=== PATIENT | female | born 1975 | race Caucasian/White ===

== ENCOUNTER 2017-12-28 16:19 | Inpatient (IN) | payer OTHER ==
[~2017-12-28] VITALS: Ht 166.4 cm; Wt 53.5 kg
[2017-12-28] MEDS ORDERED: MIRALAX 17 GM POWD.PACK PO PRN (17:15)
[2017-12-28] MEDS ORDERED: NICOTINE 14 MG/24HR PATCH TD PRN (17:15)
[2017-12-28] MEDS ORDERED: LOPERAMIDE HCL 2 MG CAPSULE PO PRN ×2 (17:15)
[2017-12-28] MEDS ORDERED: MAG HYDROX/AL HYDROX/SIMETH 30 ML LIQUID UDC PO PRN (17:15)
[2017-12-28] MEDS ORDERED: ONDANSETRON 4 MG/2 ML VIAL IM PRN (17:15)
[2017-12-28] MEDS ORDERED: ACETAMINOPHEN 325 MG TABLET PO PRN (17:15)
[2017-12-28] MEDS ORDERED: DICYCLOMINE HCL 20 MG TABLET PO PRN (17:15)
[2017-12-28] MEDS ORDERED: LORAZEPAM 1 MG TABLET PO PRN (17:15)
[2017-12-28] MEDS ORDERED: CLONIDINE HCL 0.1 MG TABLET PO PRN (17:15)
[2017-12-28] MEDS ORDERED: NICOTINE POLACRILEX 4 MG GUM-PK OF TEN BC PRN (17:15)
[2017-12-28] MEDS ORDERED: diphenhydrAMINE 50 MG CAPSULE PO PRN (17:15)
[2017-12-28] MEDS ORDERED: MAGNESIUM HYDROXIDE 30 ML LIQUID UDC PO PRN (17:15)
[2017-12-28] MEDS ORDERED: LORAZEPAM 2 MG/1 ML VIAL IM PRN (17:15)
[2017-12-28 17:46] VITALS: BP 117/65
--- NOTE | 2017-12-28 17:51 | NUR ---
PRE ADMISSION 42 year old female presenting at intake office, patient noted anxious and fidgety. patient bp: 117/65 hr: 74 t: 98.0 r: 16 02sat: 99% room air. patient reports allergies to penicillins and shrimp. patient reports is here to detox off of: oxycodone, ketamine and Klonopin. Patient reports she lives in [place] with her . reports past medical history of: anxiety and depression. primary care physician, Dr. Tapia in [place]. Patient was seen and examined by Dr. Beck at intake office. Patient was educated and provided with teaching regarding admission process and unit protocols with good verbal understanding.
[2017-12-28 18:18] LABS: BASOPHILS % (AUTO) 0.6 % (0.0-2.0); EOSINOPHILS # (AUTO) 0.6 K/uL (0.0-0.7); EOSINOPHILS % (AUTO) 8.2 % (0.0-7.0); HEMATOCRIT 42.5 % (31.2-41.9); HEMOGLOBIN 14.9 g/dL (10.9-14.3); LYMPHOCYTES # (AUTO) 1.7 K/uL (20.0-40.0); MEAN CORPUSCULAR HEMOGLOBIN 31.3 uug (24.7-32.8); MEAN CORPUSCULAR HGB CONC 35 g/dL (32.3-35.6); MEAN CORPUSCULAR VOLUME 89.5 fL (75.5-95.3); MONOCYTES # (AUTO) 0.6 K/uL (2.0-10.0); MONOCYTES % (AUTO) 8.9 % (0.0-11.0); NEUTROPHILS # (AUTO) 4.1 K/uL (1.8-8.9); NEUTROPHILS % (AUTO) 58.3 % (38.5-71.5); PLATELET COUNT (AUTO) 278 K/uL (179-408); RED BLOOD CELL COUNT(AUTO) 4.75 MIL/uL (3.63-4.92)
--- NOTE | 2017-12-28 18:20 | NUR ---
[facility]ION [facility], body search completed by female LABORER CHEESEMAKING, no contraband was found, patients body assessment completed, patient skin is intact, no breakdown, bruising or discoloration were noted. Patient was oriented to unit and to room, education regarding call light use was provided. Patient noted fidgety and anxious, has a flat affect. Patient provided with calming reassurance. Patient reports allergies to penicillins and to shrimp. Patient reports that in 2006 she was prescribed opiates due to severe menstrual cramps and PMS. Patient then reports she began taking medication not as prescribed, patient reports unable to stop taking the medication but is self motivated towards her sobriety to stop using drugs. Patient reports substance use history of: 1. opiates- oxycodone 150mg a day by mouth or intranasally, patient reports she first began using in the year 2006, but for the past two years has been taking 150mg a day, last used 12/28/2017 at 1530 consumed 15mg. 2. ketamine- began using at the age of 21, for the past 5 years has been using on a weekly basis 1 gram, via intranasally. 3. Klonopin-began using 3 years ago, for the past 3 years has been using 1mg four time a month, last used 12/21/2017 consumed 1mg. Patient reports this is her first time in detox/rehab. Reports a past medical history of: anxiety and depression diagnosed 5 years ago, when her mother . Patient reports she has had surgery on arm due to a tendon in 2009, reports surgery last year to ear drum pop. 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 Patient reports her primary care physician is Dr. Tapia in [place]. Patient reports she smokes 1.5 packs of cigarettes on a daily basis, smoking cessation education provided. Patient currently intoxicated. Denies any history of seizures. Patients safety precautions are in place. Patient was endorsed to shift nurse manager nurse, all pertinent information was discussed.
[2017-12-28 18:21] LABS: *URINE HCG, QUAL NEGATIVE (NEGATIVE)
[2017-12-28 18:22] LABS: ALANINE AMINOTRANSFERASE 24 U/L (14-59); ALKALINE PHOSPHATASE 38 U/L (50-136); ASPARTATE AMINOTRANSFERASE 14 U/L (15-37); BILIRUBIN,TOTAL 0.3 mg/dL (0.2-1.0); CARBON DIOXIDE 31 mmol/L (21-32); CHLORIDE 101 mmol/L (98-107); CREATININE 0.8 mg/dL (0.6-1.3); GLUCOSE 124 mg/dL (74-106); MAGNESIUM 1.8 mg/dL (1.8-2.4); POTASSIUM 3.6 mmol/L (3.5-5.1); UREA NITROGEN, BLOOD 8 mg/dL (7-18)
[2017-12-28 18:33] LABS: THYROID STIMULATING HORMONE 0.157 mIU/mL (0.358-3.740)
[2017-12-28 18:34] LABS: ETHANOL < 3 MG/DL (0-0)
[2017-12-28] MEDS: LORAZEPAM 1 MG TABLET PO PRN (18:42)
--- NOTE | 2017-12-28 18:42 | NUR ---
PRN ATIVAN Patient noted with "panic attack", rapid breathing, crying, elevated heart rate, agitation, increase nausea. patient provided with calming reassurance and breathing techniques with no relief, patient reports "i suffer from panic attacks" patient with ciwa score of: 15. As per MD orders patient was administered 2mg Ativan PO for ciwa score of above 12. Staff Nurse at patients bedside with continuous non pharmacological interventions. hr: 122. Will continue to monitor closely. safety measures in place.
[2017-12-28 18:46] LABS: *AMPHETAMINE, URINE NEGATIVE (NEGATIVE); *BARBITURATE, URINE NEGATIVE (NEGATIVE); *CANNABINOID, URINE NEGATIVE (NEGATIVE); *COCCAINE, URINE POSITIVE (NEGATIVE); *OPIATE, URINE NEGATIVE (NEGATIVE); *PHENCYCLIDINE SCREEN,URINE NEGATIVE (NEGATIVE)
--- NOTE | 2017-12-28 19:17 | NUR ---
Start of shift note Received report from day shift nurse. Pt is a 42 yo female, A+Ox4, presenting to [facility] for Benzo/Opiate withdrawal. Pt noted to be restless, anxious, and agitated. Pt has HX of Anxiety and depression. Pt is on 5 day Subutex taper, tolerated well. Respirations even and unlabored. Will continue to monitor.
[2017-12-28 20:17] VITALS: BP 115/78
[2017-12-28] MEDS ORDERED: BUPRENORPHINE HCL 2 MG TAB.SUBL SL PRN (21:00)
[2017-12-28] MEDS ORDERED: LORAZEPAM 1 MG TABLET PO SCH (21:00)
[2017-12-28] MEDS: GABAPENTIN 300 MG CAPSULE PO SCH (21:00)
[2017-12-28] MEDS ORDERED: [UNRECOGNIZED DRUG - CODE] VG (21:18)
[2017-12-28] MEDS ORDERED: CA C PO (21:18)
[2017-12-28] MEDS ORDERED: ALBU18HF2 INH (21:18)
[2017-12-28] MEDS ORDERED: SIME125T3 PO (21:18)
[2017-12-28] MEDS ORDERED: MICO100S5 VG (21:18)
[2017-12-28] MEDS ORDERED: MICO15CR4 TP (21:18)
[2017-12-28] MEDS ORDERED: MULTIVITAMIN GUMMY (21:18)
[2017-12-29 00:31] VITALS: BP 112/74
[2017-12-29 04:26] VITALS: BP 119/77
--- NOTE | 2017-12-29 06:57 | NUR ---
End of shift note Pt was continuously noted to be anxious, restless, and agitated. Pt remained in room for majority of shift except to get food from kitchen and to go smoke on smoking patio. Pt was not given any PRN medications during shift. Pt slept for a total of 9 HRS. Last COWS: 7 and Last CIWA: 7 @0400. Respirations even and unlabored. Will endorse to day shift nurse.
--- NOTE | 2017-12-29 07:42 | NUR ---
BEGINNING OF SHIFT Patient endorsement report received from guard captain nurse, all pertinent information discussed. Patient is a 42 year old female with admitting Dx: Opiate withdrawal. Patient is Currently under close observation, patient scheduled to begin a subutex taper this morning, will monitor closely. patient with last cow score of: 7, and ciwa score of 7. slept for 9 hours. Fall and seizure precautions observed at all times. Patient received in bed with eyes closed, respirations are even and unlabored. will educated regarding plan of care for the day, and medication regimen. fall and seizure precautions observed and in place. will continue to monitor closely. safety measures in place.
[2017-12-29 08:55] VITALS: BP 111/67
[2017-12-29] MEDS ORDERED: TUBERCULIN,PURIF.PROT.DERIV. 5 TU/0.1 ML TEST ID ONE (09:00)
[2017-12-29] MEDS: GABAPENTIN 300 MG CAPSULE PO SCH ×2 (09:00→20:41)
[2017-12-29] MEDS: BUPRENORPHINE HCL 2 MG TAB.SUBL SL SCH ×3 (09:00→20:41)
[2017-12-29 13:22] VITALS: BP 108/61
--- NOTE | 2017-12-29 13:27 | NUR ---
PRN ATIVAN/SUBUTEX Patient presented with restlessness, inability to stay still, flushed face, clammy skin, enlarged pupils, bone and joint aches, nasal congestion, moist eyes, abdominal cramps, tremors, irritability, anxiety, and gooseflesh with cow score of: 16 and ciwa score of: 15, Administered Subutex 4mg SL as ordered and Ativan 2 mg PO as ordered for s/sx of withdrawal. Vital signs WNL. will continue to monitor. Addendum: 12/29/17 at [address] ELISE LVN [address]. Beck was made aware of patients CIWA score of: 15.
[2017-12-29] MEDS: LORAZEPAM 1 MG TABLET PO PRN ×2 (13:29→17:40)
--- NOTE | 2017-12-29 13:57 | NUR ---
SUBUTEX REASSESSMENT Medication effective, decrease in restlessness, and reports no c/o stomach cramps. cow score from: 16 to 13, will continue to monitor. safety measures in place.
--- NOTE | 2017-12-29 14:27 | NUR ---
ATIVAN REASSESSMENT Medication effective, patient with decrease restlessness and decrease tremors, ciwa score from 15 to 13. will continue to monitor.
[2017-12-29] MEDS: GUAIFENESIN LA 600 MG TABLET.SA PO PRN (15:45)
--- NOTE | 2017-12-29 15:45 | NUR ---
PRN MUCINEX Patient noted with cough, as per MD orders patient to receive mucinex for cough, administered medication as ordered, encouraged patient to increase PO fluid intake as tolerated. will monitor.
--- NOTE | 2017-12-29 15:49 | NUR ---
PRN CLONIDINE Patient diaphoretic c/o feeling hot and cold with chills. patient also with increase anxiety/agitation. Administered clonidine as ordered, will monitor effectiveness of medication. bp: 108/61 hr: 64.
[2017-12-29] MEDS: METHOCARBAMOL 750 MG TABLET PO PRN (16:40)
--- NOTE | 2017-12-29 16:40 | NUR ---
PRN ROBAXIN Patient c/o muscle aches 02/17, administered Robaxin as ordered, will monitor effectiveness of medication.
--- NOTE | 2017-12-29 16:45 | NUR ---
MUCINEX REASSESSMENT Patient repots medication effective, decrease in cough. will continue to monitor.
--- NOTE | 2017-12-29 16:49 | NUR ---
CLONIDINE REASSESSMENT Patient reports feeling less diaphoretic, less c/o chills, patient reports still feeling very anxious and agitated. provided patient with calming reassurance and non pharmacological interventions will continue to monitor.
[2017-12-29 17:38] VITALS: BP 109/94
--- NOTE | 2017-12-29 17:40 | NUR ---
PRN ATIVAN Patient noted with elevated heart rate, agitation, tremors, sweats, inability to stay still, and increase anxiety, patient verbalized feeling very anxious. patient provided with calming reassurance and breathing techniques with no relief, patient with ciwa score of: 14. As per MD orders patient was administered 2mg Ativan PO for ciwa score of above 12. Will continue to monitor closely. safety measures in place.
--- NOTE | 2017-12-29 17:40 | NUR ---
ROBAXIN REASSESSMENT Patient reports medication effective, current pain level 2/10, will continue to monitor.
--- NOTE | 2017-12-29 18:40 | NUR ---
ATIVAN REASSESSMENT Patient presented with less anxiety and agitation. current ciwa score of: 12. will continue to monitor.
--- NOTE | 2017-12-29 18:42 | NUR ---
END OF SHIFT Patient alert and oriented x4, monitored closely during shift. Patient has a worried, and anxious facial expression. Patient at times with increase anxiety, restlessness, and agitation, provided with calming reassurance as needed along with non pharmacological interventions as needed. Patient presented with: elevated heart rate, restlessness, flushed face, diaphoresis, enlarged pupils, nasal congestion, moist eye, abdominal cramps, tremors, anxiety, gooseflesh. Initial cow score of: 6, and ciwa score of: 6, last cow score of: 12 and ciwa score of: 14. Patient was received first dose of detox medication Subutex as ordered at 1327. Patient also received PRN: Subutex, Ativan x2, Mucinex, clonidine, Robaxin as ordered, medications were effective. Patient noted with productive cough, remains afebrile, encouraged patient adequate PO fluid intake as tolerated. During shift PPD was administered to left F/A, well tolerated. Patient encouraged participation in therapy sessions, patient denies any SI/HI, Patient was encouraged to verbalize feelings, encouraged to develop coping skills and utilization of non pharmacological interventions. Patients safety measures are in place. call light kept within reach, will continue to monitor. Endorsed to shift coordinator nurse, all pertinent information discussed.
--- NOTE | 2017-12-29 19:15 | NUR ---
Start of Shift Note: Received patient from day shift nurse. Patient is a 42 y.o female admitted yesterday 12/28/17 for medically supervised withdrawal from Opiates. Patient is alert & oriented x4. Patient appears flushed, has a blunt affect & anxious/irritable mood. Patient presents with sweating, chills, stuffy nose, reports restless legs, 5/10 generalized body aches, mild headache & nausea. Patient started on a 5-day Subutex taper and is tolerating well. Last COWS 12 CIWA 12. Pt received PRN Ativan 2mg x2, Mucinex, Clonidine & Robaxin during day shift and was effective per report. Patient remains stable. Educated patient of current plan of care. Encourage pt to increased fluid intake. Will continue to monitor patient.
[2017-12-29 20:00] VITALS: BP 95/65
[2017-12-29] MEDS: IBUPROFEN 600 MG TABLET PO PRN (20:41)
[2017-12-29] MEDS: ONDANSETRON ODT 4 MG TAB.RAPDIS SL PRN (20:41)
[2017-12-29] MEDS: HYDROXYZINE PAMOATE 25 MG CAPSULE PO PRN (20:41)
--- NOTE | 2017-12-29 20:41 | NUR ---
PRN Zofran/Motrin/Vistaril Patient is anxious and agitated, reports 5/10 generalized body aches & mild headache and nausea noted with no episode of vomiting. Non-pharmacological intervention provided but ineffective. PRN Zofran SL, Motrin & Vistaril administered as ordered. Will monitor for effectiveness of medication.
[2017-12-29] MEDS: ALBUTEROL INHALER IH PRN (20:55)
--- NOTE | 2017-12-29 21:41 | NUR ---
PRN Reassessment Patient verbalized improved nausea, decreased in pain from 7/10 to 3/10 and decreased in anxiety after medication administration. Pt noted in bed calm & comfortable. No facial grimacing noted. Safety measures in place. Will continue to monitor patient.
--- NOTE | 2017-12-30 07:06 | NUR ---
End of Shift Note: Patient is a 42 y.o female admitted 12/28/17 for medically supervised withdrawal from Opiates. Patient is alert & oriented x4. Patient has been isolative and stayed in her room the whole night. Educated patient to increase activity and to socialize. Patient continues on her Subutex taper tolerating well. Patient presented with sweating, chills, stuffy nose, restlessness, generalized body aches, mild headache & nausea. Last COWS is 12 CIWA 12. Patient received PRN Zofran, Motrin & Vistaril during my shift and were effective. Pt stable at this time. Pt remains compliant with treatment and medications. Will continue to closely monitor s/s of withdrawal. Encourage pt to increase fluid intake. Fluid intake: 500 ml, Voided 1x with no bowel movement. Pt slept for a total of 8 hours. All needs attended & met. Safety measures in place. Will endorse pt to day shift nurse.
--- NOTE | 2017-12-30 07:46 | NUR ---
START OF SHIFT Received report from night nurse, 42 year old female admitted for Opioids withdrawal. Patient cont with 5 days Subutex tolerating well. Per endorsement patient received PRN Vistaril, Motrin, Zofran effective per night nurse and slept for 8 hours, Last COWS was-12 and CIWA 12. Received patient alert awake anxious agitated, restless, bilateral hand tremors noted. Patient is due for schedule medications. Educated patient with current plan of care of medications regimen and importance of attending groups and activities with good verbal understanding. Safety measures in place. Will cont with plan of care.
[2017-12-30 08:00] VITALS: BP 107/62
[2017-12-30] MEDS: GABAPENTIN 300 MG CAPSULE PO SCH ×2 (08:12→20:40)
--- NOTE | 2017-12-30 08:20 | NUR ---
PRN ATIVAN CIWA score noted 9, patient c/o of anxiety, agitation, restless,sweats,bilateral hand tremors noted. PRN Ativan 1mg PO given as ordered. Will cont to monitor and reassess.
[2017-12-30] MEDS ORDERED: BUPRENORPHINE HCL 2 MG TAB.SUBL SL SCH (09:00)
--- NOTE | 2017-12-30 09:00 | NUR ---
ATIVAN REASSESSMENT CIWA score noted 5, patient reported Ativan was effective in controlling s/s of withdrawal.
[2017-12-30 11:06] LABS: HEPATITIS B SURFACE AG Negative (Negative)
[2017-12-30] MEDS: GUAIFENESIN LA 600 MG TABLET.SA PO PRN (11:25)
[2017-12-30] MEDS: HYDROXYZINE PAMOATE 25 MG CAPSULE PO PRN (11:29)
--- NOTE | 2017-12-30 11:29 | NUR ---
PRN VISTARIL/MUCINEX Patient c/o of anxiety, agitation, and cough. PRN Vistaril 25mg PO, Mucinex 600mg PO given as ordered. Will cont to monitor and reassess.
[2017-12-30] MEDS ORDERED: ALBUTEROL SULFATE 2.5 MG/ 0.5 ML NEBU NEB PRN (11:45)
[2017-12-30] MEDS ORDERED: LORAZEPAM 1 MG TABLET PO ONE (11:45)
[2017-12-30] MEDS ORDERED: AZITHROMYCIN 250 MG TABLET PO ONE (11:45)
[2017-12-30 12:00] VITALS: BP 109/60
[2017-12-30] MEDS ORDERED: BENZONATATE 100 MG CAPSULE PO PRN (12:00)
--- NOTE | 2017-12-30 12:29 | NUR ---
VISTARIL, MUCINEX REASSESSMENT Per patient medications were effective anxiety, agitation and cough subsided.
[2017-12-30] MEDS: BUPRENORPHINE HCL 2 MG TAB.SUBL SL SCH ×2 (14:52→20:41)
[2017-12-30] MEDS: METHOCARBAMOL 750 MG TABLET PO PRN (15:01)
--- NOTE | 2017-12-30 15:01 | NUR ---
PRN ROBAXIN,NICOTINE GUM Patient c/o of myalgia 5/10, and nicotine craving. PRN Robaxin 750mg PO, Nicotine 4mg given as ordered. Will cont to monitor and reassess.
[2017-12-30 16:00] VITALS: BP 115/55
--- NOTE | 2017-12-30 16:01 | NUR ---
NICOTINE GUM, ROBAXIN REASSESSMENT Per patient nicotine gum was effective in controlling craving and muscle spasms lower to 2/10.
--- NOTE | 2017-12-30 19:03 | NUR ---
END OF SHIFT NOTE Gave report to night nurse,42 year old female remains A/O x4. Patient cont with Subutex taper tolerating well. Patient presented with anxiety, agitation, tremors, light headed,nausea, difficulty sitting still, yawning, body aches, cough, nicotine craving. Patient was given scheduled medications and was given PRN Mucinex 600mg , Vistaril 25mg Po , Ativan 2mg PO x1 and Azithromycin 500mg PO x1,Robaxin 750mg PO, Nicotine gum 4mg. Pt encouraged to attend groups and activities. Pt seen socializing with peers. Most recent COWS is 4. All pertinent information provided to night nurse. Pt is stable at this time, night nurse will continue to monitor.
--- NOTE | 2017-12-30 19:24 | NUR ---
START OF SHIFT 307 Vanessa Patient is a 42-year-old female admitted on 12/28/17 for opiate and benzo withdrawal. Patient is currently on a 5-day Subutex taper, today is day 2, tolerating well, with PRN Ativan on hand. Patients last COWS was 10, last CIWA 6 per day shift nurse. Patient received the following PRNs today: Ativan 1mg, Mucinex, Vistaril, Robaxin, and Nicotine gum; all noted to be effective by day shift. Upon assessment, patient is crying and very anxious. Patient is distressed about not being able to speak with her and tearfully states, "I just want to go to sleep so I don't have to think about anything" demonstrating inability to cope with her anxiety. Patient complains of nausea stating, "I almost threw up downstairs when we were outside," however patient refuses any medication to relieve nausea stating, "I'll just keep swallowing." Patient also reports difficulty sleeping and is requesting sleep aid. Patient is on fall and seizure precautions with no history of seizure. Safety measures in place, side rails up x2, bed locked in low position, call light within reach. Will continue to monitor.
[2017-12-30 20:00] VITALS: BP 113/69
[2017-12-30] MEDS: TRAZODONE 100 MG TABLET PO PRN (20:41)
[2017-12-30] MEDS: LORAZEPAM 1 MG TABLET PO PRN (20:41)
--- NOTE | 2017-12-30 20:41 | NUR ---
PRN ATIVAN & TRAZODONE Patient is tearful, anxious, agitated and restless. Patient reports difficulty sleeping and requests sleep medication. PRN Ativan 2mg given for CIWA greater than 12, currently 13. PRN Zofran given PO. Safety measures in place, call light within reach. Will monitor for effectiveness.
--- NOTE | 2017-12-30 21:41 | NUR ---
PRN ATIVAN & TRAZODONE REASSESSMENT Patient has a current CIWA of 8. Patient is observed in bed stating, "I'm starting to get sleepy." PRN Ativan and Trazodone effective. Safety measures in place, side rails up x2, bed locked in low position, call light within reach. Will continue to monitor.
[2017-12-31] VITALS: BP 108/56
--- NOTE | 2017-12-31 | NUR ---
COWS DEFERRED COWS deferred due to patient sleeping; to be assessed and scored while patient is awake. Respirations even and unlabored. Safety measures in place, call light within reach. Will continue to monitor.
[2017-12-31 04:00] VITALS: BP 104/62
--- NOTE | 2017-12-31 04:00 | NUR ---
COWS DEFERRED COWS deferred again at this time due to patient sleeping; to be assessed and scored while patient is awake. Respirations are even and unlabored. Safety measures in place, call light within reach. Will continue to monitor.
--- NOTE | 2017-12-31 07:15 | NUR ---
END OF SHIFT Patient is a 42-year-old female admitted on 12/28/17 for opiate and benzo withdrawal. Patient is currently on a 5-day Subutex taper, today will be day 3, tolerating well, with PRN Ativan on hand. Patients last COWS was 14, last CIWA 8. Patient received PRN Ativan 2mg for CIWA of 13 and PRN Trazodone for sleep, both were effective. Patient slept for 10 hours, total intake of 1,855mL, void x1, stool x0. Patient is on fall and seizure precautions with no history of seizure. Safety measures in place, side rails up x2, bed locked in low position, call light within reach. Will endorse to day shift.
[2017-12-31 08:00] VITALS: BP 106/60
--- NOTE | 2017-12-31 08:05 | NUR ---
START OF SHIFT: RECEIVED PT A/O X 4. SHE PRESENTS WITH IRRITABLE MOOD AND CONGRUENT AFFECT. SHE IS TEARFUL AND STATES THAT SHE FEELS "TERRIBLE". SHE C/O BODY ANXIETY, BODY ACHES,SWEATS,CHILLS AND RESTLESSNESS. COWS 11. SUBUTEX TAPER IN PROGRESS TO MANAGE S/S OF W/D. PRN VISTARIL GIVEN TO MANAGE ANXIETY.ENCOURAGED INCREASED FLUIDS FOR HYDRATION. ENCOURAGED GROUP ATTENDANCE TO IMPROVE COPING SKILLS AND PREVENT RELAPSE.
[2017-12-31] MEDS: GABAPENTIN 300 MG CAPSULE PO SCH ×3 (09:13→20:39)
[2017-12-31] MEDS: BUPRENORPHINE HCL 2 MG TAB.SUBL SL SCH ×3 (09:13→20:40)
[2017-12-31] MEDS: AZITHROMYCIN 250 MG TABLET PO SCH (09:13)
[2017-12-31] MEDS: HYDROXYZINE PAMOATE 25 MG CAPSULE PO PRN (09:22)
[2017-12-31] MEDS ORDERED: LORAZEPAM 1 MG TABLET PO PRN ×2 (11:30)
[2017-12-31 12:00] VITALS: BP 111/89
--- NOTE | 2017-12-31 13:35 | NUR ---
PT C/O SEVERE ANXIETY AND AGITATION. CIWA 8 PRN ATIVAN 1 MG PO PRN GIVEN TO MANAGE S/S OF W/D. WILL MONITOR EFFECTIVENESS.
--- NOTE | 2017-12-31 14:05 | NUR ---
ATIVAN PRN EFFECTIVE. CIWA 5
[2017-12-31] MEDS: ESCITALOPRAM OXALATE 10 MG TABLET PO SCH (14:33)
[2017-12-31 16:00] VITALS: BP 109/61
--- NOTE | 2017-12-31 18:30 | NUR ---
END OF SHIFT: PT. CONTINUES ON SUBUTEX TAPER TO MANAGE S/S OF W/D WHICH INCLUDE ANXIETY,BODY ACHES, RESTLESSNESS AND SHE IS EMOTIONAL AND BECOMES TEARFUL AT TIMES. LAST COWS 8. PRN ATIVAN 1 MG PO GIVEN FOR SEVERE ANXIETY EARLY IN AFTERNOON AND EFFECTIVE. SHE WAS ALSO GIVEN VISTARIL 25 MG PO THIS AM AND MILDLY EFFECTIVE. PT WAS COMPLIANT WITH GROUPS. WILL PASS SHIFT REPORT TO ONCOMING NIGHT NURSE.
[2017-12-31 20:00] VITALS: BP 114/72
--- NOTE | 2017-12-31 20:00 | NUR ---
START OF SHIFT NOTE RECEIVED REPORT FROM DAY SHIFT NURSE. PATIENT IS A 42 YEAR OLD FEMALE ADMITTED FOR OPIATE WITHDRAWAL. PATIENT IS ON 5 DAY SUBUTEX TAPER. PATIENT WAS GIVEN PRN ATIVAN . LAST COWS 8 AND CIWA 5. RECEIVED PATIENT IN THE ROOM, ALERT AND ORIENTED X 4. RESPIRATION EVEN AND UNLABORED. PATIENT PRESENTED WITH ANXIETY, SWEATING, ABDOMINAL CRAMPING AND MILD PINS/NEEDLES SENSATIONS. COWS 7 AND CIWA 7 AT THIS TIME. SAFETY MEASURES IN PLACE. CALL LIGHT IN REACH. WILL CONTINUE TO MONITOR
[2017-12-31] MEDS: TRAZODONE 100 MG TABLET PO PRN (20:40)
[2017-12-31] MEDS: CLONIDINE HCL 0.1 MG TABLET PO SCH (20:40)
[2018-01-01 04:00] VITALS: BP 117/77
--- NOTE | 2018-01-01 07:11 | NUR ---
END OF SHIFT NOTE PATIENT SLEPT 8 HOURS. FLUID INTAKE OF 592 ML. VOIDED X 3. NO BM. PATIENT COMPLIANT WITH MEDICATION AND TREATMENT PLAN. PATIENT WAS ANXIOUS, SWEATING, ABDOMINAL CRAMPING AND MILD PINS/ NEEDLES SENSATIONS BEGINNING OF SHIFT. SCHEDULED MEDICATION AND TAPER GIVEN ORDERED, TOLERATED WELL AND NO ADVERSE REACTION. PATIENT DID NOT REQUIRE PRN MEDICATION. LAST COWS 7 AND CIWA 7. SAFETY MEASURES IN PLACE. CALL LIGHT IN REACH. WILL CONTINUE TO MONITOR. LAST COWS 7 AND CIWA 7.
[2018-01-01 08:00] VITALS: BP 105/70
--- NOTE | 2018-01-01 08:05 | NUR ---
START OF SHIFT: RECEIVED PT A/O X 4. SHE PRESENTS WITH ANXIOUS MOOD AND GUARDED AFFECT. SHE C/O BODY ANXIETY, BODY ACHES,SWEATS,IRRITABILITY AND RESTLESSNESS. COWS 11. SUBUTEX TAPER IN PROGRESS TO MANAGE S/S OF W/D. PRN ENCOURAGED INCREASED FLUIDS TO ASSIST IN FACILITATING DETOX PROCESS. ENCOURAGED GROUP ATTENDANCE TO IMPROVE COPING SKILLS AND PREVENT RELAPSE. WILL CONTINUE TO MONITOR AND MANAGE S/S OF W/D. PPD 2 MM AND NEGATIVE.
[2018-01-01] MEDS: AZITHROMYCIN 250 MG TABLET PO SCH (08:22)
[2018-01-01] MEDS: ESCITALOPRAM OXALATE 10 MG TABLET PO SCH (08:23)
[2018-01-01] MEDS: GABAPENTIN 300 MG CAPSULE PO SCH ×3 (08:23→20:39)
[2018-01-01] MEDS: CLONIDINE HCL 0.1 MG TABLET PO SCH ×2 (08:23→20:39)
[2018-01-01] MEDS: BUPRENORPHINE HCL 2 MG TAB.SUBL SL SCH ×2 (08:24→20:41)
[2018-01-01] MEDS: HYDROXYZINE PAMOATE 25 MG CAPSULE PO PRN (09:58)
--- NOTE | 2018-01-01 10:05 | NUR ---
PT CAME TO NURSES STATION TEARFUL AND SHAKY. SHE REPORTS SEVERE ANXIETY AND STATES TALK ON THE PATIO ABOUT DRUGS WHICH TRIGGERED AN ANXIETY ATTACK. PRN VISTARIL GIVEN TO MANAGE ANXIETY. WILL MONITOR EFFECTIVENESS.
--- NOTE | 2018-01-01 11:05 | NUR ---
PRN VISTARIL EFFECTIVE. PT STATES SHE FEELS LESS ANXIETY.
[2018-01-01 12:00] VITALS: BP 93/60
[2018-01-01] MEDS ORDERED: METH-406 PO (12:37)
[2018-01-01] MEDS ORDERED: GABA-534 PO ×2 (12:37)
[2018-01-01] MEDS ORDERED: TRAZ-147 PO (12:37)
[2018-01-01] MEDS ORDERED: HYDR-3895 PO (12:37)
[2018-01-01] MEDS ORDERED: CLON0.1T14 PO (12:37)
[2018-01-01] MEDS ORDERED: IBUP-1955 PO (12:37)
[2018-01-01] MEDS ORDERED: DICY20TA28 PO (12:37)
[2018-01-01] MEDS: ONDANSETRON ODT 4 MG TAB.RAPDIS SL PRN (13:05)
--- NOTE | 2018-01-01 13:10 | NUR ---
PRN ZOFRAN ODT GIVEN FOR REPORTED NAUSEA. WILL MONITOR EFFECTIVENESS.
--- NOTE | 2018-01-01 14:00 | NUR ---
PT STATES ZOFRAN WAS EFFECTIVE. NO NAUSEA NOTED.
[2018-01-01] MEDS: METHOCARBAMOL 750 MG TABLET PO PRN ×2 (14:37→23:03)
[2018-01-01] MEDS: IBUPROFEN 600 MG TABLET PO PRN (14:37)
--- NOTE | 2018-01-01 14:40 | NUR ---
PT REPORTS MUSCLE ACHES AND BACK PAIN 5/10 ON SCALE. PRN MOTRIN AND PRN ROBAXIN GIVEN. WILL MONITOR EFFECTIVENESS.
--- NOTE | 2018-01-01 15:40 | NUR ---
PT STATES ROBAXIN AND MOTRIN WERE EFFECTIVE AND HER PAIN IS NOW 2/10. SHE STATES SHE FEELS BETTER.
[2018-01-01 16:00] VITALS: BP 93/60
--- NOTE | 2018-01-01 16:35 | NUR ---
PT REPORTS SHE HAS A YEAST INFECTION. MADE AWARE. NEW ORDER FOR FLUCONAZOLE 150 MG PO X 1 ORDERED. WILL ADMINISTER ORDERED.
[2018-01-01] MEDS ORDERED: FLUCONAZOLE 100 MG TABLET PO ONE (17:00)
--- NOTE | 2018-01-01 18:51 | NUR ---
END OF SHIFT: PT. CONTINUES ON SUBUTEX TAPER TO MANAGE S/S OF W/D WHICH INCLUDE ANXIETY,BODY ACHES,NAUSEA RESTLESSNESS AND BACK PAIN. PRN VISTARIL GIVEN FOR ANXIETY AND EFFECTIVE. PRN ZOFRAN GIVEN FOR NAUSEA AND EFFECTIVE. PRN ROBAXIN AND MOTRIN GIVEN FOR MUSCLE ACHES AND BACK PAIN. LAST COWS 7. HER MOOD IS LABILE. SHE IS BECOMING MORE OPEN MINDED ABOUT ABSTINENCE AND RECOVERY. PT WAS COMPLIANT WITH GROUPS AND INCREASED FLUIDS. NEW ORDER FOR FLUCONAZOLE 150 X 1 FOR YEAST INFECTION ADMINISTERED. WILL PASS SHIFT REPORT TO ONCOMING NIGHT NURSE.
[2018-01-01 20:00] VITALS: BP 101/60
--- NOTE | 2018-01-01 20:00 | NUR ---
START OF SHIFT NOTE RECEIVED REPORT FROM DAY SHIFT NURSE. PATIENT IS A 42 YEAR OLD FEMALE ADMITTED FOR OPIATE WITHDRAWAL. CONTINUE ON SUBUTEX TAPER. PATIENT WAS GIVEN PRN VISTARIL, ZOFRAN, ROBAXIN AND MOTRIN. PATIENT STATES SHE HAD YEAST INFECTION. ONE TIME ORDER OF DIFLUCAN ORDERED PER DR. CAMARILLO. LAST COWS 7. RECEIVED PATIENT IN HER ROOM. ALERT AND ORIENTED X 4. PATIENT NOTED ANXIOUS, RESTLESS, SWEATING, CHILLS , YAWNING, STUFFY NOSE, MILD HEADACHE, DIFFICULTY SLEEPING, PANIC , RESTLESS LEGS AND BACK PAIN 7/10, TOLERABLE AT THIS TIME BUT WILL REPORT IF SHE WOULD NEED PAIN MEDICATION. SAFETY MEASURES IN PLACE. CALL LIGHT IN REACH. WILL CONTINUE TO MONITOR.
[2018-01-01] MEDS: TRAZODONE 100 MG TABLET PO PRN (23:03)
--- NOTE | 2018-01-01 23:03 | NUR ---
PRN ROBAXIN AND TRAZADONE ADMINISTRATION PATIENT REQUESTS FOR SLEEP AID AND C/O BACK PAIN 03/19. WILL MONITOR FOR EFFECTIVENESS
--- NOTE | 2018-01-02 | NUR ---
PRN TRAZADONE/ROBAXIN RE-ASSESSMENT/COWS /CIWA DEFERRED PATIENT SLEEPING. RESPIRATION EVEN AND UNLABORED. SAFETY MEASURES IN PLACE. VS REFUSED. CALL LIGHT IN REACH WILL CONTINUE TO MONITOR
[2018-01-02 04:00] VITALS: BP 98/55
--- NOTE | 2018-01-02 04:00 | NUR ---
COWS/CIWA DEFERRED PATIENT SLEEPING. RESPIRATION EVEN AND UNLABORED. SAFETY MEASURES IN PLACE. VS REFUSED. CALL LIGHT IN REACH WILL CONTINUE TO MONITOR
--- NOTE | 2018-01-02 07:05 | NUR ---
END OF SHIFT NOTE PATIENT SLEPT 6 HOURS. FLUID INTAKE 710 ML. VOIDED X 3 . NO BM. CONTINUE ON SUBUTEX TAPER , TOLERATED WELL AND NO ADVERSE REACTION. PATIENT WAS ANXIOUS, RESTLESS, SWEATING, CHILLS , YAWNING, C/O STUFFY NOSE, MILD HEADACHE, DIFFICULTY SLEEPING, PANIC FEELING , RESTLESS LEGS AND BACK PAIN /, BEGINNING OS SHIFT. PRN MOTRIN AND TRAZADONE GIVEN. PATIENT COMPLIANT WITH MEDICATION AND TREATMENT PLAN. SAFETY MEASURES IN PLACE. CALL LIGHT IN REACH. WILL CONTINUE TO MONITOR. LAST COWS 8 AND CIWA 7.
--- NOTE | 2018-01-02 07:10 | NUR ---
START OF SHIFT PATIENT IS A 42 YEAR OLD FEMALE ADMITTED TO [facility] ON 12/28/17 FOR A MEDICALLY SUPERVISED WITHDRAWAL FROM OPIATES, BENZODIAZEPINES AND HYPNOTICS. PATIENT IS ON A 5 DAY SUBUTEX TAPER WITH PRN ATIVAN AND THIS IS DAY 5. PRN'S REQUIRED ON PM SHIFT : TRAZODONE AND ROBAXIN. PATIENT SLEPT FOR 6 HOURS AND IS STILL ASLEEP AT THIS TIME, BREATHING EVEN AND UNLABORED. LAST COWS 8 AND CIWA 7. PATIENT CONTINUES ON ORAL ZITHROMAX FOR INFECTION, CONTINUE TO FOLLOW MD PLAN OF CARE.
[2018-01-02 08:00] VITALS: BP 105/46
[2018-01-02] MEDS: ESCITALOPRAM OXALATE 10 MG TABLET PO SCH (08:42)
[2018-01-02] MEDS: GUAIFENESIN LA 600 MG TABLET.SA PO PRN (08:42)
[2018-01-02] MEDS: GABAPENTIN 300 MG CAPSULE PO SCH ×3 (08:42→20:21)
[2018-01-02] MEDS: AZITHROMYCIN 250 MG TABLET PO SCH (08:42)
[2018-01-02] MEDS: ALBUTEROL INHALER IH PRN ×2 (08:43→14:17)
--- NOTE | 2018-01-02 08:45 | NUR ---
PRN MUCINEX/TESSALON PERLES GIVEN FOR BRONCHIAL COUGH, WILL REASSESS
[2018-01-02] MEDS: CLONIDINE HCL 0.1 MG TABLET PO SCH ×2 (08:47→20:21)
[2018-01-02] MEDS ORDERED: BUPRENORPHINE HCL 2 MG TAB.SUBL SL SCH (09:00)
--- NOTE | 2018-01-02 09:00 | NUR ---
PRN ATIVAN/MOTRIN/ROBAXIN ATIVAN 1MG PO GIVEN FOR INCREASED ANXIETY CIWA 11 MOTRIN 600MG PO AND ROBAXIN 750MG PO GIVEN FOR BODY ACHES 02/17 WILL CONTINUE TO ASSESS
[2018-01-02] MEDS: METHOCARBAMOL 750 MG TABLET PO PRN (09:03)
[2018-01-02] MEDS: IBUPROFEN 600 MG TABLET PO PRN (09:04)
--- NOTE | 2018-01-02 09:45 | NUR ---
PRN REASSESS MUCINEX AND TESSALON EFFECTIVE FOR COUGH SUPPRESSANT PER PT REPORT
--- NOTE | 2018-01-02 10:00 | NUR ---
PRN REASSESS ATIVAN 1MG PO EFFECTIVE, PT REPORTS DECREASE IN ANXIETY CIWA 8 MOTRIN/ROBAXIN EFFECTIVE PAIN LEVEL NOW 11/17
[2018-01-02] MEDS ORDERED: BENZOCAINE/MENTH/CETYLPYRD LOZENGE MM PRN (11:30)
[2018-01-02] MEDS ORDERED: NORMAL SALINE NASAL 45 ML BOTTLE NS PRN (11:30)
[2018-01-02] MEDS ORDERED: PSEUDOEPHEDRINE HCL 30 MG TABLET PO PRN (11:30)
[2018-01-02 12:00] VITALS: BP 109/45
[2018-01-02] MEDS: FLUTICASONE PROP NASAL SPRAY 16 GM BOTTLE NS SCH (14:16)
[2018-01-02] MEDS: HYDROXYZINE PAMOATE 25 MG CAPSULE PO PRN (14:23)
--- NOTE | 2018-01-02 14:25 | NUR ---
PRN MEDS PRN FLONASE/ ALBUTEROL INH/CEPACOL THROAT LOZENGE/ VISTARIL 50MG PO GIVEN FOR CHEST CONGESTION AND ANXIETY, WILL REASSESS
--- NOTE | 2018-01-02 15:15 | NUR ---
PRN REASSESS PATIENT STATES VISTARIL WAS EFFECTIVE IN REDUCING HER ANXIETY FLONASE/CEPACOL AND ALBUTEROL INHALER ALL EFFECTIVE IN REDUCING CONGESTION.
[2018-01-02 16:00] VITALS: BP 107/55
--- NOTE | 2018-01-02 19:17 | NUR ---
END OF SHIFT: PATIENT IS A 42 YEAR OLD FEMALE ADMITTED TO [facility] ON 12/28/17 FOR A MEDICALLY SUPERVISED WITHDRAWAL FROM OPIATES, BENZODIAZEPINES AND HYPNOTICS. PATIENT IS ON A 5 DAY SUBUTEX TAPER WITH PRN ATIVAN AND THIS IS DAY 5. PRN'S REQUIRED ON PM SHIFT : ROBAXIN, MOTRIN, ATIVAN 1MG, TESSALON PERLES, MUCINEX, CEPACOL THROAT LOZENGE, FLONASE, VISTARIL AND ALBUTEROL INHALER. PATIENT STILL REMAINS ANXIOUS AT TIMES AND COMPLAINS OF BODY/MUSCLE ACHES. LAST COWS 6 AND CIWA 7 @ 1600 . PATIENT CONTINUES ON ORAL ZITHROMAX FOR POSSIBLE BRONCHIAL INFECTION, PATIENT HAD A FLUID INTAKE THIS SHIFT OF 1500ML, 5 VOIDS AND1 BM.CONTINUE TO FOLLOW MD PLAN OF CARE. ENDORSED TO NIGHT NURSE.
--- NOTE | 2018-01-02 19:17 | NUR ---
START OF SHIFT NOTE: Patient is a 42 year old female presented for Benzodiazepines/Klonopin Opioid/Oxycodone, and Ketamine withdrawal under medical supervision. She is continues ordered 5 day Subutex and PRN Ativan Taper. Patient is alert and oriented x4. Patient appears anxious with flat affect. COWS=4,CIWA=3 at 1600: patient presented with anxiety, agitation, nervousness, body aches, myalgia, nasal congestion, restlessness, tremors, sweating, and fatigue. PRN Clonidine 0.1 mg PO administrated for anxiety at 1549, PRN Mucinex 600 mg PO administrated for cough @0845, PRN Tessalon 100 mg PO administrated for cough @1425, PRN Cepacol 1 lavon. PO administrated for cough [id number], PRN VIstaril 25 mg PO administrated for anxiety at 1425, PRN Albuterol Inh administrated for wheezing at 1417, PRN Motrin 600 mg PO administrated for body aches at 0904, PRN Ativan 1 mg PO administrated @0900, Robaxin 750 mg PO administrated for myalgia at 0900, were effective per day shift nurse report. Patient remains compliant with treatment, medications and diet regime. Encouraged to fluid intake as tolerated. Encourage to attended groups activities. All needs met. Safety measures in place: Call light within reach, bed is locked in lowest position, padded bed rails up bilaterally. Patient endorsed by day shift nurse. Will continue to monitor closely.
[2018-01-02 20:00] VITALS: BP 119/62
[2018-01-02] MEDS: TRAZODONE 100 MG TABLET PO PRN (20:21)
--- NOTE | 2018-01-02 20:21 | NUR ---
PRN TRAZODONE 200 MG PO ADMINISTRATION PRN Trazodone 200 mg PO administrated for insomnia with full glass of water as ordered. All needs met. Safe and calm environment with minimized noises was provided. Safety measures on place. Call light within reach, bed in lowest position locked, padded rails up bilaterally. Will continue to monitor closely.
[2018-01-02] MEDS: MICONAZOLE NITRATE 2% VAG CREA 45 GM TUBE VG SCH (21:04)
--- NOTE | 2018-01-02 21:04 | NUR ---
MICONAZOLE 7 VAG CREAM ADMINISTRATION MICONAZOLE ADMINISTERED AT THIS TIME BECAUSE PT REFUSED ADMINISTRATION AT THE EARLIER SCHEDULED TIME.
--- NOTE | 2018-01-02 21:21 | NUR ---
RE-ASSESSMENT Patient is sleeping. RR 17. Respirations even and unlabored. PRN Trazodone 200 mg PO administrated for insomnia at 2020 as ordered was effective All needs met. Safe and calm environment with minimized noises was provided. Safety measures on place. Call light within reach, bed in lowest position locked, padded rails up bilaterally. Will continue to monitor closely.
--- NOTE | 2018-01-03 | NUR ---
VS REFUSED AND COWS/CIWA DEFERRED Patient refused to be woken up for 0000 VS. COWS/CIWA deferred d/t patient sleeping to assess while patient is awake. Respirations even and unlabored. RR 16. All needs met. Safe and calm environment with minimized noises was provided. Safety measures on place. Call light within reach, bed in lowest position locked, padded rails up bilaterally. Will continue to monitor closely.
[2018-01-03 04:00] VITALS: BP 96/54
--- NOTE | 2018-01-03 07:06 | NUR ---
END OF SHIFT NOTE Presented 42 year old female completed ordered 5 day Subutex and PRN Ativan Taper for Benzodiazepines/Klonopin Opioid/Oxycodone,and Ketamine withdrawal under medical supervision. Withdrawal symptoms closely monitored. Patient is alert and oriented x4. Patient reports allergy to Penicillins, Shrimps. She is on Full Code, Regular diet, is on Full Code, Fall and Seizures Precautions. Patient denies History of Seizures. Educated in safety and hygiene care. Encouraged to independently perform hygiene care. Initial COWS=10, CIWA=8 at 1999. Last COWS=6, CIWA=6 @0400. During my shift patient presented with anxiety, agitation, nervousness, nasal congestion, tremors, sweating, restless legs, and fatigue. Skin is intact, warm and dry to touch. PRN Trazodone 200 mg PO administrated for insomnia at 2020 was effective. Patient remains compliant with treatment, medications and diet regime. Encouraged to increase oral fluids as tolerated. Patient scheduled for discharging today, 01/03/2018 at 0930. Calm and safety environment with minimized noises was provided. Patient slept 9 hours, intake 1,250 ml, voided x4. Encouraged to fluid intake as tolerated. All needs met. Safety measures in the place: Call light within reach, bed in the lowest position and locked, padded rails up x2. Patient endorsed to day shift nurse.
--- NOTE | 2018-01-03 07:39 | NUR ---
BEGINNING OF SHIFT Patient endorsement report received from night shift supervisor nurse, all pertinent information discussed. Patient is a 42 year old female with admitting Dx: Opiate withdrawal. Patient is Currently under close observation, patient scheduled to be discharged this morning, noted self motivated towards sobriety. patient with last cow score of: 6, and ciwa score of 6. slept for 9 hours. Fall and seizure precautions observed at all times. Patient awake, alert and oriented x4, will educated regarding plan of care for the day, and medication regimen, along with all discharge instructions. fall and seizure precautions observed and in place. will continue to monitor closely. safety measures in place.
[2018-01-03 08:02] VITALS: BP 116/67
[2018-01-03] MEDS: GABAPENTIN 300 MG CAPSULE PO SCH (08:18)
[2018-01-03] MEDS: FLUTICASONE PROP NASAL SPRAY 16 GM BOTTLE NS SCH (08:18)
[2018-01-03] MEDS: MICONAZOLE NITRATE 2% VAG CREA 45 GM TUBE VG SCH (08:18)
[2018-01-03 08:19] VITALS: BP 116/67
[2018-01-03] MEDS: CLONIDINE HCL 0.1 MG TABLET PO SCH (08:19)
[2018-01-03] MEDS: AZITHROMYCIN 250 MG TABLET PO SCH (08:19)
[2018-01-03] MEDS: GUAIFENESIN LA 600 MG TABLET.SA PO PRN (08:19)
[2018-01-03] MEDS ORDERED: ESCITALOPRAM OXALATE 10 MG TABLET PO SCH (09:00)
--- NOTE | 2018-01-03 09:31 | NUR ---
DISCHARGE Patient was discharged off the unit at 0931, prior to discharge patient was educated regarding all discharge instructions and teaching with good verbal understanding. Patient noted self motivated towards sobriety. patient with last cow score of: 5, last ciwa score of: 5. Patients vital signs:: 116/67 hr: 67. Patients home medications, discharge instructions and prescriptions were placed in patients personal duffel bag. patient was off the unit at 0931, not in any apparent acute distress and in stable condition.
== END 2018-01-03 09:31 | disposition other institution (70) | DRG 895 ==
LOC: SRC 16:19
PROVIDERS: ADMIT Internal Medicine; ATTEND Internal Medicine
PROC: HZ2ZZZZ Detoxification Services for Substance Abuse Treatment (ICD-10-PCS; principal; 2017-12-28)
PROC: HZ41ZZZ Group Counseling for Substance Abuse Treatment, Behavioral (ICD-10-PCS; 2017-12-31)
DX: F11.23 Opioid dependence with withdrawal (principal); F16.10 Hallucinogen abuse, uncomplicated; F17.210 Nicotine dependence, cigarettes, uncomplicated; F41.0 Panic disorder [episodic paroxysmal anxiety]; Z81.1 Family history of alcohol abuse and dependence; Z82.49 Family history of ischemic heart disease and other diseases of the circulatory system; F13.230 Sedative, hypnotic or anxiolytic dependence with withdrawal, uncomplicated; Z88.0 Allergy status to penicillin; G47.00 Insomnia, unspecified; N92.1 Excessive and frequent menstruation with irregular cycle; G89.4 Chronic pain syndrome; J20.9 Acute bronchitis, unspecified; R73.9 Hyperglycemia, unspecified; R94.6 Abnormal results of thyroid function studies
CPT/HCPCS: 36415; 70030-TC; 71045; 80307; 80353; 83735; 84443; 84703; 85025; 86580; 86592; 86705; 86803; 87340; 87806; A4663; G0480; J3535; Q0144; Q0162